=== PATIENT | female | born 1945 | race Caucasian/White ===

== ENCOUNTER → 2021-04-06 | Outpatient (CLI) | payer MEDICARE ==
[2021-04-06 14:25] LABS: HEMOGLOBIN 11.9 gm/dl (12.3-15.3); RED BLOOD COUNT 3.92 M/UL (4.00-5.10); WHITE BLOOD COUNT 5.7 K/UL (4.5-11.0)
[2021-04-07 12:13] LABS: COMPLEMENT C3, SERUM 112 mg/dL (82-167); COMPLEMENT C4, SERUM 28 mg/dL (12-38); RHEUMATOID ARTHRITIS FACTOR <10.0 IU/mL (0.0-13.9)
[2021-04-07 13:14] LABS: ALDOLASE 2.8 U/L (3.3-10.3)
[2021-04-08 15:14] LABS: A/G RATIO 1.1 (0.7-1.7); ALBUMIN 3.4 g/dL (2.9-4.4); ALPHA-1-GLOBULIN 0.3 g/dL (0.0-0.4); ALPHA-2-GLOBULIN 0.8 g/dL (0.4-1.0); BETA GLOBULIN 0.9 g/dL (0.7-1.3); GAMMA GLOBULIN 1.2 g/dL (0.4-1.8); GLOBULIN, TOTAL 3.2 g/dL (2.2-3.9); IMMUNOGLOBULIN A, QN, SERUM 149 mg/dL (64-422); IMMUNOGLOBULIN G, QN, SERUM 1136 mg/dL (586-1602); IMMUNOGLOBULIN M, QN, SERUM 23 mg/dL (26-217); M-SPIKE Not Observed g/dL (Not Observed); PROTEIN, TOTAL, SERUM 6.6 g/dL (6.0-8.5)
== END ==
LOC: LAB 13:14
PROVIDERS: Internal Medicine
DX: R76.8 Other specified abnormal immunological findings in serum (principal); M25.60 Stiffness of unspecified joint, not elsewhere classified; M25.50 Pain in unspecified joint; M54.9 Dorsalgia, unspecified; M19.90 Unspecified osteoarthritis, unspecified site
CPT/HCPCS: 36415; 80053; 82085; 82550; 82728; 82784; 83520; 83883; 84155; 84156; 84165; 84166; 85025; 85652; 86140; 86160; 86200; 86334; 86335; 86431